=== PATIENT | male | born 1960 ===

== ENCOUNTER 2017-03-21 08:58 | Emergency (ER) | payer MEDICAID ==
[2017-03-21 09:13] VITALS: RESP 18
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
[2017-03-21 10:02] VITALS: BMI 31.0
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
[2017-03-21 11:16] VITALS: BP 152/89; PULSE 75; TEMP 98.1
[2017-03-21 11:20] VITALS: O2SAT 95
== END 2017-03-21 11:17 | disposition home or self-care (01) ==
LOC: SUPCPDRO 08:58 → C.ER 08:58
DX: S89.92XA Unspecified injury of left lower leg, initial encounter (principal); W18.39XA Other fall on same level, initial encounter; Y92.410 Unspecified street and highway as the place of occurrence of the external cause